=== PATIENT | male | born 1965 | race Caucasian/White ===

== ENCOUNTER 2016-11-15 06:50 | Inpatient (IN) | payer BC ==
[2016-11-15] VITALS (8 sets, daily range): BP systolic 110–143; BP diastolic 71–86; Ht 185.4 cm; Wt 96.6 kg
[~2016-11-15] VITALS: Ht 185.4 cm; Wt 96.6 kg
[~2016-11-15 06:50] MED LIST: AMOXICILLIN500 M1 PO; ASPIRIN EC81 MG PO; FISH OIL 1,0001 CA1 PO; GARLIC1 CAP PO; IBUPROFEN200 MG OR; MOBIC7.5 MG PO; PRILOSEC20 MG PO; RED YEAST RICE600 MG PO; ZESTRIL20 MG PO; ZYLOPRIM100 MG PO
[2016-11-15 08:08] LABS: BASOPHILS 0.2 % (0.0-2.0); EOSINOPHILS 0.5 % (0-7); HEMATOCRIT 44.1 % (42.0-54.0); IMMATURE GRANULOCYTES 0.3 % (0-5); MCH 32.7 pg (26.0-34.0); MCV 96.1 fL (80.0-100.0); MEAN PLATELET VOLUME 10.3 fL (7.4-10.4); MONOCYTES 7.9 % (2-11); NEUTROPHILS 83.1 % (40-80); PLATELET COUNT 187 10x3/uL (130-400); RBC 4.59 10x6/uL (4.20-6.10); RDW 13.3 % (11.5-14.5); WBC 10.9 10x3/uL (4.8-10.8)
[2016-11-15 08:14] LABS: APPEARANCE CLEAR (CLEAR); BILIRUBIN NEGATIVE (NEGATIVE); COLOR YELLOW (YELLOW); GLUCOSE NEGATIVE (NEGATIVE); KETONE MODERATE mg/dL (NEGATIVE); LEUKOCYTE ESTERASE NEGATIVE (NEGATIVE); NITRITE NEGATIVE (NEGATIVE); PROTEIN NEGATIVE (NEGATIVE); UROBILINOGEN NORMAL (NORMAL)
[2016-11-15 08:39] LABS: ALBUMIN 4.3 g/dL (3.4-5.0); ALKALINE PHOSPHATASE 41 U/L (46-116); ALT (SGPT) 42 U/L (10-68); BILIRUBIN - TOTAL 0.65 mg/dL (0.2-1.3); CALC OSMOLALITY 276 mosm/kg (275-300); CALCIUM 9.9 mg/dL (8.5-10.1); CARBON DIOXIDE 32.6 mmol/L (21.0-32.0); CHLORIDE - SERUM 99 mmol/L (98-107); CREATININE - SERUM 0.9 mg/dL (0.6-1.3); GLUCOSE 101 mg/dL (74-106); LIPASE 122 U/L (73-393); POTASSIUM - SERUM 4.1 mmol/L (3.5-5.1); PROTEIN - SERUM 8.1 g/dL (6.4-8.2); SODIUM 139 mmol/L (136-145); UREA NITROGEN 10 mg/dL (7-18); eGFR NON AFRICAN AMERICAN > 90 mL/min (90-120)
--- NOTE | 2016-11-15 13:18 | NUR ---
PATIENT TO ROOM AT THIS TIME. NO COMPLAINTS, IV INTACT. ASSESSMENT COMPLETE, VS STABLE. FAMILY AT BEDSIDE. ORIENTED TO ROOM AND CALL LIGHT.
--- NOTE | 2016-11-15 19:44 | NUR ---
1939/NOTIFIED MD'S THAT UNABLE TO KEEP SPO2 ABOVE 94% ON OXYGEN, HR>120, TEMP OF 100. DR BEASLEY AND DR REED AT BEDSIDE. PLACED ON 13LITER OXYMIZER NC. SPO2 NOW ABOVE 94%, MD SAYS OK TO SEND TO FLOOR.
--- NOTE | 2016-11-15 20:17 | NUR ---
PATIENT BACK TO UNIT AT THIS TIME WITH VS STABLE. O2 ON 15 LITERS OXIMIZER. SATS 94% AT THIS TIME. IV INTACT. NO COMPLAINTS. DRESSINGS TO ABDOMEN CDI. SANDEEP DRAIN INTACT AND DRAINING PINK RED DRAINAGE. COMPRESSED AT THIS TIME. CALL LIGHT WITHIN REACH.
--- NOTE | 2016-11-15 20:45 | NUR ---
PATIENT IN BED WITH EYES CLOSED AT THIS TIME. IV INTACT. LIFE SKILLS TRAINER RECONNECTED. OXIMIZER ON AT 15 L. NO COMPLAINTS. FAMILY AT BEDSIDE. CALL LIGHT WITHIN REACH. VS STABLE.
--- NOTE | 2016-11-15 21:30 | NUR ---
PATIENT IN BED WITH NO COMPLAINTS AT THIS TIME. IV INTACT. VS STABLE. BSCDS ON. CALL LIGHT WITHIN REACH. FAMILY AT BEDSIDE.
--- NOTE | 2016-11-15 22:30 | NUR ---
REPORT GIVEN TO MIGUEL GARRISON AT THIS TIME. PATIENT IN BED WITH IV INTACT. FAMILY AT BEDSIDE. CALL LIGHT WITHIN REACH.
--- NOTE | 2016-11-15 23:41 | NUR ---
ALICIA OLMEDOUPERVISOR FOR BSCD MACHINE FOR PATIENT.
--- NOTE | 2016-11-15 23:57 | NUR ---
ASSESSMENT DONE. AWAKE ALERT. LAP SITES X4 TO ABDOMEN SANDEEP DRAIN PATENT AND COMPRESSED. O2 ON PER OXIMYZER AT 11 L/M. IV PATENT LEFT FOREARM OF NS AT 100CC'S/HR HOME CARE COMPANION OF DILAUDID IN USE WITH SETTINGS AT 0.2MG Q10MIN W/4MG Q4HR L/O. FAMILY MEMBER AT BEDSIDE.
--- NOTE | 2016-11-16 01:55 | NUR ---
IV FLUIDS CHANGED TO NS AT 100CC'S/HR LR COMPLETED FROM SURGERY. EYES CLOSED RESPIRATIONS WITH EASE AND UNLABORED.
--- NOTE | 2016-11-16 03:48 | NUR ---
REC PT. AAO TIMES 4 LYING IN SEMIFOWLERS POSITION IN BED. 02 @ 11L PER OXIMIZER. SAT 99 PERCENT . RESP 18 EVEN UNLABORED. DECREASED O2 TO 9; PER OXIMIZER. LUNGS SOUNDS CLEAR BILAT UPPER LOBES. DIMINISHED BILAT LOWER LOBES. ENCOURAGED USE OF BORING MACHINE OPERATOR AND DEEP BREATHING AND COUGH. BED LOW CL IN REACH WILL CONT. TO MONITOR.
[2016-11-16 04:00] VITALS: BP 133/51
[2016-11-16 05:48] LABS: BASOPHILS 0.1 % (0.0-2.0); EOSINOPHILS 0 % (0-7); HEMATOCRIT 41.6 % (42.0-54.0); HEMOGLOBIN 14.1 g/dL (13.5-17.5); IMMATURE GRANULOCYTES 0.2 % (0-5); LYMPHOCYTES 3.1 % (15-50); MCH 32.7 pg (26.0-34.0); MCHC 33.9 g/dL (31.0-37.0); MCV 96.5 fL (80.0-100.0); MEAN PLATELET VOLUME 11.2 fL (7.4-10.4); MONOCYTES 12.4 % (2-11); NEUTROPHILS 84.2 % (40-80); PLATELET COUNT 167 10x3/uL (130-400); RBC 4.31 10x6/uL (4.20-6.10); RDW 13.3 % (11.5-14.5); WBC 9.7 10x3/uL (4.8-10.8)
[2016-11-16 06:10] LABS: ALKALINE PHOSPHATASE 29 U/L (46-116); CALC OSMOLALITY 269 mosm/kg (275-300); CALCIUM 8.1 mg/dL (8.5-10.1); CARBON DIOXIDE 27.6 mmol/L (21.0-32.0); CHLORIDE - SERUM 97 mmol/L (98-107); CREATININE - SERUM 0.8 mg/dL (0.6-1.3); GLUCOSE 142 mg/dL (74-106); POTASSIUM - SERUM 3.9 mmol/L (3.5-5.1); PROTEIN - SERUM 6.7 g/dL (6.4-8.2); SODIUM 135 mmol/L (136-145); UREA NITROGEN 8 mg/dL (7-18); eGFR NON AFRICAN AMERICAN > 90 mL/min (90-120)
[2016-11-16 06:17] LABS: ALBUMIN 3.2 g/dL (3.4-5.0); ALT (SGPT) 30 U/L (10-68)
[2016-11-16 08:32] VITALS: BP 107/67
--- NOTE | 2016-11-16 08:40 | NUR ---
SCHEDULED MEDICATION ADMINISTERED AT THIS TIME. ASSESSMENT PERFORMED PER FLOWSHEET. PT ALERT AND ORIENTED X4. FAMILY AT BEDSIDE. DRAIN TO RLQ PATENT AND BULB COMPRESSED. PROVIDED PT WITH INCENTIVE SPIROMETER AND INSTRUCTED ON PROPER USE. PT DEMONSTRATED USE WITH 1,000 ML OF INSPIRATORY VOLUME. DENIES NEEDS AT THIS TIME. PSYCHIATRIC SPECIALIST IN USE FOR PAIN AND CURRENT PAIN LEVEL 4/10. CALL LIGHT IN REACH, SCD'S ON AND IN WORKING ORDER. WILL CONTINUE WITH PLAN OF CARE.
--- NOTE | 2016-11-16 09:20 | NUR ---
RECEIVED A PHONE CALL FROM DR BEASLEY AT THIS TIME. HE STATED THAT IF PULMONARY WANTED TO ANTICOAGULATE PATIENT THAT IT WAS OKAY FROM HIS STANDPOINT.
--- NOTE | 2016-11-16 10:00 | NUR ---
ABG PERFORMED PER ORDER. OXYGEN WEANED TO 4L VIA NC.
[2016-11-16 11:42] VITALS: BP 112/68
--- NOTE | 2016-11-16 12:00 | NUR ---
SCHEDULED MEDICATIONS ADMINISTERED AT THIS TIME. DENIES FURTHER NEEDS AT THIS TIME. CALL LIGHT IN REACH, WILL CONTINUE WITH PLAN OF CARE.
--- NOTE | 2016-11-16 12:50 | NUR ---
IV TO LEFT AC LEAKING AROUND INSERTION SITE. WILL RE-SITE IV FOR IV FLUID MAINTENANCE.
--- NOTE | 2016-11-16 13:10 | NUR ---
AMBULATING IN HALLWAY AT THIS TIME WITH FAMILY. PT DENIES SHORTNESS OF BREATH, BUT STILL COMPLAINS OF DIFFICULTY IN TAKING DEEP BREATHS. AMBULATED AROUND NURSES STATION 3 TIMES.
--- NOTE | 2016-11-16 15:00 | NUR ---
20G IV SITED TO PT'S RIGHT FOREARM X1 ATTEMPT PER QUITA POPE.
[2016-11-16 15:15] VITALS: BP 123/77
--- NOTE | 2016-11-16 15:51 | NUR ---
SCHEDULED MEDICATIONS ADMINISTERED AT THIS TIME. FAMILY AT BEDSIDE. DENIES NEEDS AT THIS TIME. WILL CONTINUE WITH PLAN OF CARE.
--- NOTE | 2016-11-16 21:00 | NUR ---
PATIENT RESTING IN BED. NO SIGNS OF DISTRESS NOTED. ALERT AND ORIENTED. SCHEDULED MEDS GIVEN. SHIFT ASSESSMENT COMPLETED. DENIES ANY NEEDS AT THIS TIME. BED LOW. CALL LIGHT IN REACH
[2016-11-16 22:56] VITALS: BP 140/97
[2016-11-17] VITALS: BP 124/85
--- NOTE | 2016-11-17 06:14 | NUR ---
PT IS ASLEEP WITH EASY RESPIRATIONS AND NO DISTRESS NOTED. O2 IS IN PLACE. THE BED IS LOW, RAILS UP X'S 2 WITH THE CALL LIGHT AT HAND.
[2016-11-17 06:30] LABS: BASOPHILS 0.1 % (0.0-2.0); EOSINOPHILS 0.3 % (0-7); HEMATOCRIT 39.9 % (42.0-54.0); HEMOGLOBIN 13.5 g/dL (13.5-17.5); IMMATURE GRANULOCYTES 0.3 % (0-5); LYMPHOCYTES 6.8 % (15-50); MCH 32.9 pg (26.0-34.0); MCHC 33.8 g/dL (31.0-37.0); MCV 97.3 fL (80.0-100.0); MEAN PLATELET VOLUME 10.2 fL (7.4-10.4); MONOCYTES 8.7 % (2-11); NEUTROPHILS 83.8 % (40-80); PLATELET COUNT 140 10x3/uL (130-400); RDW 13.6 % (11.5-14.5); WBC 7.7 10x3/uL (4.8-10.8)
[2016-11-17 06:49] LABS: ALBUMIN 2.9 g/dL (3.4-5.0); ALKALINE PHOSPHATASE 32 U/L (46-116); ALT (SGPT) 23 U/L (10-68); CALC OSMOLALITY 265 mosm/kg (275-300); CALCIUM 8.5 mg/dL (8.5-10.1); CHLORIDE - SERUM 97 mmol/L (98-107); GLUCOSE 127 mg/dL (74-106); POTASSIUM - SERUM 3.5 mmol/L (3.5-5.1); PROTEIN - SERUM 6.7 g/dL (6.4-8.2); SODIUM 133 mmol/L (136-145); UREA NITROGEN 8 mg/dL (7-18); eGFR NON AFRICAN AMERICAN 84 mL/min (90-120)
[2016-11-17 07:38] VITALS: BP 137/69
--- NOTE | 2016-11-17 07:52 | NUR ---
AWAKE AND ALERT SITTING ON THE SIDE OF THE BED AT THIS TIME. ASSESSMENT PERFORMED PER FLOWSHEET. SANDEEP DRAIN COMPRESSED AND DRESSING C/D/I. SCD'S REMOVED AND SKIN TO BLE WNL. IV PATENT. PAIN 4/10 WITH DIE MAKER ELECTRONIC IN USE. SELF POSITIONS AND AMBULATED INDEPENDENTLY. CALL LIGHT IN REACH, WILL CONTINUE WITH PLAN OF CARE.
--- NOTE | 2016-11-17 08:47 | NUR ---
SCHEDULED MEDICATIONS ADMINISTERED AT THIS TIME. MEDICAL BILLER IN USE FOR PAIN CONTROL. DENIES NEEDS AT PRESENT TIME. WILL CONTINUE WITH PLAN OF CARE.
--- NOTE | 2016-11-17 10:56 | NUR ---
SCHEDULED MEDICATIONS ADMINISTERED AT THIS TIME. ASSISTED PT WITH AMBUALTION AROUND NURSES STATION TWO TIMES. OXYGEN ON 4L AND SATURATIONS REMAINED 91-92% WITH AMBULATION. ASSISTED BACK TO ROOM. CALL LIGHT IN REACH, WILL CONTINUE WITH PLAN OF CARE.
[2016-11-17 11:18] VITALS: BP 126/72
--- NOTE | 2016-11-17 13:49 | CN ---
PATIENT NAME:SOLOMON DUNN MEDICAL RECORD: [id number] : 65 LOCATION:D.[facility] ADMIT DATE: 11/15/16 ACCOUNT: [id number] CONSULTING PHYSICIAN: ROBER CONDE MD REFERRING PHYSICIAN: LYNN BEASLEY MD DATE OF CONSULTATION: 11/16/2016 CONSULT REQUESTING PHYSICIAN: Lynn Beasley MD. REASON FOR CONSULTATION: Acute hypoxic respiratory failure. HISTORY OF PRESENT ILLNESS: Mr. Dunn is a 51-year-old male who was admitted with abdominal pain. He underwent appendectomy and postop, the patient was hypoxic. He was on 15 liters oxygen, now he is down to 4 liters. The patient denies any fever or chill, no night sweats. He does not have any chest pain. He does not hear himself wheezing. REVIEW OF SYSTEMS: Mainly in the history of present illness. PAST MEDICAL HISTORY: 1. Hypertension. 2. History of cardiac murmur. 3. History of gout. PAST SURGICAL HISTORY: 1. Now, he is status post appendectomy. 2. He has history of T&A. 3. Ankle surgery. 4. Wrist surgery. ALLERGIES: No known drug allergies. PRESENT MEDICATIONS: On [employer] was reviewed. PERSONAL AND SOCIAL HISTORY: The patient is an ex-smoker. He smoked almost 2 packs per day for 20 years. He quit 8 years ago. He is a nondrinker. FAMILY HISTORY: Noncontributory. PHYSICAL EXAMINATION: GENERAL: The patient is now lying comfortably. He is not in acute distress, wearing nasal cannula oxygen. VITAL SIGNS: The blood pressure is 112/68, pulse is 89, respiration is 18, temperature 98.7, SpO2 is 95% on 6 liter nasal cannula. HEENT: Conjunctivae pink, sclerae nonicteric. NECK: Supple. No JVD. CHEST: There are bibasilar crackles. No wheezing. HEART: Rhythm regular, normal sound, no murmur. ABDOMEN: Soft. Bowel sounds present. No hepatosplenomegaly. RECTAL: Deferred. EXTREMITIES: No cyanosis, no clubbing, no pedal edema. SKIN: Warm. Normal turgor. CENTRAL NERVOUS SYSTEM: The patient is awake and alert. There are no obvious cranial nerve abnormality. The gait was not tested. CONSULT REPORT [id number] SOLOMON DUNN CHEST RADIOGRAPH: There are bibasilar atelectasis, possible infiltrate. OTHER LABORATORY DATA: CBC: WBC is 10.9, hemoglobin is 15, hematocrit is 44.1 and the platelet count 187. Chemistry: Sodium is 135, potassium 3.9, BUN is 8, creatinine 0.8, glucose 142. ABG: The pH is 7.42, pCO2 is 39.1, the pO2 is 55. IMPRESSION: 1. Acute hypoxic respiratory failure. 2. Pneumonia, left lower lobe, possible compressive atelectasis. 3. Suspect underlying chronic obstructive pulmonary disease. 4. Ex-smoker. 5. Status post appendectomy. 6. Rule out pulmonary embolism. RECOMMENDATION: 1. Start him on albuterol/ipratropium nebulizer. 2. Mucinex. 3. Start him on Zosyn. 4. Flutter q.2 hourly when awake. Continue incentive spirometry q.2 hourly. Check the CTA of the upper chest to rule out pulmonary embolism. Dr. Beasley, once again thanks for involving me in the care of Mr. Dunn. TRANSINT:[id number] Voice Confirmation ID: [id number] DOCUMENT ID: [id number] ROBER CONDE MD at 1349 CC: LYNN BEASLEY MD and CAMILA ATKINSON DO [id number] DICTATION DATE: 11/16/16 1500 BILINGUAL STUDENT TUTOR: 11/16/16 1615 ADM IN [facility] [address] [place] [address]
--- NOTE | 2016-11-17 14:10 | NUR ---
Patient Name: SOLOMON DUNN Admission Status: ER Accout number: [id number] Admission Date: 11-15-2016 : 1965 Admission Diagnosis:ACUTE APPENDICITIS WITH LOCALIZED PERITONITIS Attending: LUIS Current LOS: 2 Anticipated DC Date: 11-19-2016 Planned Disposition: Home Primary Insurance: [employer] EXCH[employer] Discharge Planning Comments: CM SPOKE WITH PATIENT REGARDING D/C NEEDS AND PLANS. PATIENT STATED HE LIVES WITH HIS SPOUSE (SUE) AND SHE WILL DRIVE HIM HOME AT DISCHARGE. THERE ARE NO STEPS OR STAIRS AT HIS HOME PER PATIENT. PATIENT IS INDEPENDENT WITH HIS CARE AND HAS ONLY CRUTCHES AT HOME. PATIENTS PCP IS DR. ATKINSON AND PHARMACY IS [facility]. PATIENT DENIED THE NEED FOR HOME HEALTH OR AND HAD NO OTHER NEEDS FOR DISCHARGE. CM WILL CONTINUE TO FOLLOW PATIENT WITH D/C NEED AND PLANS. PCP DR. ATKINSON [facility] SUE (SPOUSE) [phone] Electrical Service Technician: Inga Ashton Is the patient Alert and Oriented? Yes 0 * How many steps to enter\exit or inside your home? 0 0 * PCP DR. ATKINSON 0 * Pharmacy [facility] 0 * Preadmission Environment Home with Family 0 * ADLs Independent 0 * List name and contact numbers for known caregivers / representatives who currently or will assist patient after discharge: SUE (SPOUSE) [phone] * Community resources currently utilized None 0 * Additional services required to return to the preadmission environment? Yes 0 * Can the patient safely return to the preadmission environment? Yes 0 * Has this patient been hospitalized within the prior 30 days at any hospital? No 0 Grand Total: 0
[2016-11-17 15:08] VITALS: BP 146/92
[2016-11-17 19:00] VITALS: BP 137/89
[2016-11-18] VITALS: BP 127/80
--- NOTE | 2016-11-18 01:32 | NUR ---
LYING IN BED AWAKE, DENIES NEEDS, ABD REMAINS DISTENDED, NO FLATUS AT THIS TIME, VISITOR IN ROOM, FALL PRECAUTIONS IN PLACE, CL IN REACH
[2016-11-18 04:00] VITALS: BP 120/78
--- NOTE | 2016-11-18 07:30 | NUR ---
PATIENT AMBULATING IN THE [facility].
--- NOTE | 2016-11-18 07:50 | NUR ---
PATIENT AWAKE, ALERT AND ORIENTED X'S 4. RESPIRATIONS ARE EVEN AND UNLABORED ON OXYGEN VIA NASAL CANNULA. PATIENT STATED HE HAS BEEN PASSING GAS ALL NIGHT. NO BM YET. PATIENT IS LAYING IN BED. DENIES NEEDS.
[2016-11-18 08:21] VITALS: BP 123/84
[2016-11-18 08:48] LABS: BASOPHILS 0.1 % (0.0-2.0); EOSINOPHILS 1.2 % (0-7); HEMATOCRIT 34.2 % (42.0-54.0); HEMOGLOBIN 11.5 g/dL (13.5-17.5); IMMATURE GRANULOCYTES 0.3 % (0-5); LYMPHOCYTES 5.1 % (15-50); MCH 32.4 pg (26.0-34.0); MCHC 33.6 g/dL (31.0-37.0); MCV 96.3 fL (80.0-100.0); MEAN PLATELET VOLUME 10.3 fL (7.4-10.4); MONOCYTES 11.3 % (2-11); PLATELET COUNT 147 10x3/uL (130-400); RBC 3.55 10x6/uL (4.20-6.10); RDW 13.4 % (11.5-14.5); WBC 7.5 10x3/uL (4.8-10.8)
[2016-11-18 09:19] LABS: ALBUMIN 2.5 g/dL (3.4-5.0); ALKALINE PHOSPHATASE 36 U/L (46-116); ALT (SGPT) 21 U/L (10-68); CALC OSMOLALITY 265 mosm/kg (275-300); CALCIUM 8.1 mg/dL (8.5-10.1); CARBON DIOXIDE 26.3 mmol/L (21.0-32.0); CHLORIDE - SERUM 97 mmol/L (98-107); GLUCOSE 160 mg/dL (74-106); PROTEIN - SERUM 6.2 g/dL (6.4-8.2); SODIUM 132 mmol/L (136-145); UREA NITROGEN 6 mg/dL (7-18)
[2016-11-18 09:26] LABS: CREATININE - SERUM 0.6 mg/dL (0.6-1.3); eGFR NON AFRICAN AMERICAN > 90 mL/min (90-120)
[2016-11-18 11:51] VITALS: BP 136/90
--- NOTE | 2016-11-18 17:15 | NUR ---
DISCHARGE INSTRUCTIONS COMPLETED WITH PATIENT. PATIENT VERBALIZED UNDERSTANDING. D/C IV WITH CATH INTACT. TOOK PATIENT OUT VIA WHEELCHAIR.
[2016-11-18 17:27] VITALS: BP 129/83
[2016-11-21 18:09] LABS: AEROBE ID Final report (()); RESULT 1 Enterococcus avium (())
--- NOTE | 2016-11-24 09:40 | OP ---
PATIENT NAME: SOLOMON DUNN MEDICAL RECORD: [id number] :65 LOCATION:D.MS [facility]2204 ADMISSION DATE:11/15/16 SURGEON: LYNN BEASLEY MD DATE OF OPERATION: 11/15/2016 PREOPERATIVE DIAGNOSIS: Acute appendicitis with abscess. POSTOPERATIVE DIAGNOSIS: Gangrenous acute appendicitis without abscess. PROCEDURE: Laparoscopic appendectomy. SURGEON: Lynn Beasley MD PUBLIC HEALTH SERVICE OFFICER: None. BLOOD LOSS: Minimal. ANESTHESIA: General. COMPLICATIONS: None. The risks, possible complications and alternatives to procedure were explained to the patient. He elects to proceed. OPERATIVE COURSE: The patient was conveyed to the operating room urgently on 11/15/2016. General anesthesia was induced by the anesthesia staff. The abdomen was sterilely prepped and draped. A midline incision was accomplished within the umbilical skin. There was a reducible umbilical hernia. It was reduced. I sharply cleaned the connective tissue from around the umbilical hernia defect. I entered the peritoneal cavity bluntly. A 12-mm trocar was placed. Under direct internal vision utilizing a television camera, a 5-mm trocar was inserted in the left lower quadrant. Another 5-mm trocar was inserted in the right lower quadrant. During insertion of the trocars, there appeared to have been no injury to the bowels, any intraperitoneal or retroperitoneal structures. I bluntly dissected the appendix from the surrounding colon and small bowel. The mesoappendix was taken down with the laparoscopic EnSeal device. I then stapled across the tip of the cecum with the Endo-FRANCIS type stapler utilizing a blue load. The appendix was placed within an Endobag retrieval device. It was withdrawn through the umbilical fascia defect. The 12-mm trocar was replaced and the abdomen reinsufflated. I irrigated and aspirated the right lower quadrant. There was no bleeding even at low pressure of 8. All trocars were removed and the abdomen desufflated. The skin at the umbilicus was closed with a [id number] 3-0 Vicryl suture. The skin at the umbilicus was closed with interrupted 4-0 Vicryl Rapide sutures. The skin at the other operative sites was closed with interrupted intracuticular 3-0 Vicryls. Sterile dressings were applied. The patient was then conveyed to post-anesthesia care unit where he was requiring supplemental oxygen. TRANSINT:[id number] Voice Confirmation ID: [id number] DOCUMENT ID: [id number] OPERATIVE REPORT [id number] SOLOMON DUNN ROBERT MD at 0940 CC: CAMILA ATKINSON DO [id number] DICTATION DATE: 11/16/16 0857 HOUSEFELLOW: 11/16/16 0920 DIS IN 11/18/16 [place] [id number] [place] [id number]
--- NOTE | 2016-11-24 09:40 | HP ---
PATIENT: SOLOMON DUNN MEDICAL RECORD: [id number] ACCOUNT: [id number] LOCATION:D.MS [facility] : 65 ADMISSION DATE: 11/15/16 HISTORY AND PHYSICAL EXAMINATION CHIEF COMPLAINT: Pain. HISTORY OF PRESENT ILLNESS: The patient presents with less than 1 day of pain. I personally reviewed the CT images. I personally discussed this case with Dr. Cornell. He appears to have ruptured appendicitis with an abscess. I have seen the patient and examined him. We discussed the pathophysiology of appendicitis with an abscess. We have discussed that I may be able to remove the appendix laparoscopically, may require an open procedure, may require placement of a drain and then a subsequent laparoscopic or open appendectomy in the future versus a right hemicolectomy or a cecectomy. The risks, possible complications and alternatives to procedure were explained to the patient. He elects to proceed. I saw the patient in the Emergency Room. Palpation aggravates. Nothing alleviates. He does have localized peritonitis. REVIEW OF SYSTEMS: No chest pain, no cough, no dysuria, no back pain. Positive for abdominal pain. No anemia. PAST MEDICAL AND SURGICAL HISTORY: Hypertension, gout. SOCIAL HISTORY: Does not drink, does not smoke. HOME MEDICINES: Lisinopril as well as aspirin. PHYSICAL EXAMINATION: GENERAL: The patient does not appear acutely ill. He does not appear chronically ill. VITAL SIGNS: Reviewed. HEAD: External ears appear normal. EYES: Extraocular movements are intact. NECK: Trachea is midline. CHEST: No intercostal retractions. PULMONARY: Nonlabored, no stridor. ABDOMEN: Tenderness in the right lower quadrant. There is tenderness with guarding. There is peritonitis to percussion. EXTREMITIES: No peripheral cyanosis. INTEGUMENT: No rash, no ulcerations. PSYCHIATRIC: Normal affect. NEUROLOGIC: Nonfocal, no lethargy. The patient answers questions appropriately, moves all extremities well. BACK: No thoracic kyphosis. LYMPHATICS: No lymphangitic streaking of the exposed extremities. IMPRESSION: Appendicitis with rupture and abscess. PLAN: As described above. TRANSINT:[id number] Voice Confirmation ID: [id number] DOCUMENT ID: [id number] HISTORY AND PHYSICAL [id number] SOLOMON DUNN ROBERT MD at 0940 CC: [id number] DICTATION DATE: 11/15/16 1119 ASSOCIATE DENTIST: 11/15/16 1158 DIS IN 11/18/16 [facility] [address] [place] [id number]
== END 2016-11-18 17:28 | disposition home or self-care (01) | DRG 338 ==
LOC: D.ER 06:50 → D.MS 11:10
PROVIDERS: Emergency Medicine; Family Medicine; ADMIT Surgery
PROC: 0DTJ4ZZ Resection of Appendix, Percutaneous Endoscopic Approach (ICD-10-PCS; principal; 2016-11-15 15:30)
DX: K35.3 Acute appendicitis with localized peritonitis (principal); J18.9 Pneumonia, unspecified organism; J95.821 Acute postprocedural respiratory failure; J98.11 Atelectasis; K42.9 Umbilical hernia without obstruction or gangrene; I10 Essential (primary) hypertension; K21.9 Gastro-esophageal reflux disease without esophagitis; Y83.8 Other surgical procedures as the cause of abnormal reaction of the patient, or of later complication, without mention of misadventure at the time of the procedure; E04.1 Nontoxic single thyroid nodule

== ENCOUNTER → 2016-12-20 11:35 | Outpatient (CLI) | payer BC ==
[2016-11-15 14:18] VITALS: BMI 27.1
== END | disposition home or self-care (01) ==
LOC: D.CT 11:35
DX: R10.84 Generalized abdominal pain (principal)

== ENCOUNTER 2016-12-24 01:01 | Emergency (ER) | payer BC ==
[2016-11-15 14:18] VITALS: BMI 27.1
[2016-12-24 02:23] LABS: BASOPHILS 0.2 % (0-2); EOSINOPHILS 1.8 % (0-7); HEMOGLOBIN 12.2 g/dL (13.5-17.5); IMMATURE GRANULOCYTES 0.3 % (0-5); LYMPHOCYTES 15.4 % (15-50); MCH 31.3 pg (26.0-34.0); MCHC 33.9 g/dL (31.0-37.0); MCV 92.3 fL (80.0-100.0); MEAN PLATELET VOLUME 9.3 fL (7.4-10.4); MONOCYTES 9.3 % (2-11); RDW 13.6 % (11.5-14.5)
[2016-12-24 02:24] LABS: PLATELET COUNT 190 10x3/uL (130-400)
[2016-12-24 02:39] LABS: ALBUMIN 3.3 g/dL (3.4-5.0); ALKALINE PHOSPHATASE 36 U/L (46-116); ALT (SGPT) 25 U/L (10-68); BILIRUBIN - TOTAL 0.35 mg/dL (0.2-1.3); CALCIUM 8.6 mg/dL (8.5-10.1); CARBON DIOXIDE 24.9 mmol/L (21.0-32.0); CHLORIDE - SERUM 96 mmol/L (98-107); CREATININE - SERUM 0.7 mg/dL (0.6-1.3); POTASSIUM - SERUM 4.2 mmol/L (3.5-5.1); PROTEIN - SERUM 7.5 g/dL (6.4-8.2); SODIUM 132 mmol/L (136-145); UREA NITROGEN 11 mg/dL (7-18); eGFR NON AFRICAN AMERICAN > 90 mL/min (90-120)
[2016-12-24 02:46] LABS: CREATINE KINASE 46 UL (21-232); PRO BNP 33 pg/mL (0-125)
[2016-12-24 02:49] LABS: CALC OSMOLALITY 263 mosm/kg (275-300); GLUCOSE 95 mg/dL (74-106); TROPONIN-I < 0.017 ng/mL (0.000-0.060)
== END 2016-12-24 05:30 | disposition home or self-care (01) ==
LOC: D.ER 01:01
PROVIDERS: Family Medicine
DX: R06.00 Dyspnea, unspecified (principal); M10.9 Gout, unspecified; I10 Essential (primary) hypertension

== ENCOUNTER → 2017-02-28 08:05 | Outpatient (CLI) | payer BC ==
[2016-11-15 14:18] VITALS: BMI 27.1
== END | disposition home or self-care (01) ==
LOC: D.NM 08:05
DX: E04.1 Nontoxic single thyroid nodule (principal)

== ENCOUNTER → 2017-04-12 12:02 | Outpatient (CLI) | payer BC ==
[2016-11-15 14:18] VITALS: BMI 27.1
== END | disposition home or self-care (01) ==
LOC: D.US 12:02
DX: E04.1 Nontoxic single thyroid nodule (principal)

== ENCOUNTER 2017-04-24 05:26 | Day surgery (SDC) | payer BC ==
[2017-04-23 09:30] LABS: HEMATOCRIT 41.1 % (42.0-54.0); HEMOGLOBIN 14.2 g/dL (13.5-17.5); MCH 31.4 pg (26.0-34.0); MCHC 34.5 g/dL (31.0-37.0); MCV 90.9 fL (80.0-100.0); MEAN PLATELET VOLUME 10.4 fL (7.4-10.4); RBC 4.52 10x6/uL (4.20-6.10); RDW 12.6 % (11.5-14.5); WBC 5.9 10x3/uL (4.8-10.8)
[~2017-04-24] VITALS: Ht 185.4 cm; Wt 90.7 kg
--- NOTE | ~2017-04-24 | OP ---
PATIENT NAME: SOLOOMN DUNN MEDICAL RECORD: [id number] :65 LOCATION:D[facility] ADMISSION DATE: SURGEON: LYNN BEASLEY MD DATE OF OPERATION: 04/24/2017 PREOPERATIVE DIAGNOSIS: Symptomatic left inguinal hernia. POSTOPERATIVE DIAGNOSIS: Symptomatic indirect left inguinal hernia. PROCEDURE: Left inguinal hernia repair with bilayer polypropylene preperitoneal mesh. SURGEON: Lynn Beasley MD OPTOMETRIC COORDINATOR: None. BLOOD LOSS: Minimal. ANESTHESIA: General. COMPLICATIONS: None. The risks, possible complications, and alternatives to the procedure were explained to the patient. He elects to proceed. The discussion specifically included, but was not limited to, bleeding requiring an emergency reoperation, infection, intestinal injury as well as hernia recurrence and chronic pain. OPERATIVE COURSE: The patient was conveyed to the operating room electively on 04/24/2017. General anesthesia was induced by the anesthesia staff. The abdomen and genitals were sterilely prepped and draped. A transverse incision was accomplished in the left groin. Sharp dissection was carried down through skin and subcutaneous tissue as well as Kendal fascia. The external oblique aponeurosis was opened along the direction of its fibers. I bluntly dissected down through the internal oblique and transversus abdominis muscle layers. A preperitoneal pocket was fashioned bluntly. I reduced an indirect hernia in its entirety. I cut 2 ovals out of a polypropylene mesh and sutured one on top of the other with a running #1 Surgidac. I placed the mesh in the preperitoneal space. Once I was satisfied with placement of the mesh, I sutured the internal oblique and transverse abdominis muscle layers in a horizontal mattress fashion incorporating a portion of the underlying mesh. The aponeurosis of the external oblique muscle was closed with #1 Vicryls. At no time was there any apparent nervous injury during this operation. The Kendal fascia was approximated with interrupted 3-0 Vicryl. The subdermis was approximated with interrupted 3-0 Vicryls. The skin was approximated with a running intracuticular 4-0 Vicryl. Marcaine was injected subcutaneously for postoperative pain relief. Benzoin and Steri-Strips were applied. The patient was then extubated and conveyed to post-anesthesia care unit where he was in stable condition. He will be dismissed home on hydrocodone for pain. TRANSINT:[id number] Voice Confirmation ID: [id number] DOCUMENT ID: [id number] OPERATIVE REPORT [id number] SOLOMON DUNN ROBERT MD CC: CAMILA ATKINSON DO [id number] DICTATION DATE: 04/24/1756 RENAL SOCIAL WORKER: 04/24/17 1109 [facility] [address] [place] [address]
[~2017-04-24 05:26] MED LIST changes: +CALCIUM 500 + D1 TAB PO; +COLCRYS0.6 MG PO; +GLUCOSAMINE/MSM PO; +ZESTRIL10 MG PO; -ZESTRIL20 MG PO
--- NOTE | 2017-04-24 07:33 | NUR ---
0730 PT STATES NO CHANGES IN HEALTH HISTORY ASSESSMENT SINCE INTERVIEWED ON 04/23/17. Yumiko CLINTON R.N.
[2017-04-24 07:35] VITALS: BP 107/72; Ht 185.4 cm; Wt 90.7 kg
--- NOTE | 2017-04-24 10:53 | NUR ---
1055 SERVED DIET LEMON-TUSCARORA SODA REQUESTED. O2 SAT BELOW 90% WITH NO RESPIRATORY DIFFICULTY NOTED. O2/2L NASAL CANNULA APPLIED. Yumiko CLINTON R.N.
--- NOTE | 2017-04-24 14:40 | NUR ---
1430 REPORT FROM ANIKET CLINTON RN.
== END 2017-04-24 17:00 | disposition home or self-care (01) ==
LOC: D.OPS 05:26 → D.PAN 08:00 → D.OPS 08:00 → D.PAN 09:00 → D.OPS 09:00
PROVIDERS: Anesthesiology
DX: K40.90 Unilateral inguinal hernia, without obstruction or gangrene, not specified as recurrent (principal); I10 Essential (primary) hypertension; Z01.812 Encounter for preprocedural laboratory examination

== ENCOUNTER → 2020-12-22 11:17 | Outpatient (CLI) | payer BC ==
[2017-04-24 07:35] VITALS: BMI 26.4
== END | disposition home or self-care (01) ==
LOC: D.HCCECHO 11:17
PROVIDERS: ATTEND Internal Medicine Cardiovascular Disease
DX: I10 Essential (primary) hypertension (principal)